=== PATIENT | male | born 1980 | race Caucasian/White ===

== ENCOUNTER 2025-06-04 09:05 | Outpatient (CLI) | payer BC | END 2025-06-04 09:06 | disposition home or self-care (01) | LOC: SCSMRI 09:05 | PROVIDERS: ATTEND Orthopaedic Surgery | DX: S83.512A Sprain of anterior cruciate ligament of left knee, initial encounter (principal) ==

== ENCOUNTER 2025-07-18 06:06 | Observation (INO) | payer BC ==
[2025-07-14 14:44] VITALS: BMI 24.3
[2025-07-18] MEDS ORDERED: fentaNYL PF 100 MCG/2 ML SYRINGE ONE ×2 (07:01→09:30)
[2025-07-18] MEDS ORDERED: Lidocaine 1% PF 5 ML VIAL ONE (07:02)
[2025-07-18] MEDS ORDERED: Lidocaine 1% (PF) 30 ML VIAL ONE (07:08)
[2025-07-18] MEDS ORDERED: Ropivacaine 0.5% HCl/PF (150 MG/30 ML VIAL) ONE (07:21)
[2025-07-18] MEDS ORDERED: PROPOFOL 200 MG/20 ML VIAL ONE (07:46)
[2025-07-18] MEDS ORDERED: Ondansetron PF 4 MG/2 ML Vial ONE (07:52)
[2025-07-18] MEDS ORDERED: Ondansetron PF 4 MG/2 ML Vial IVP PRN (08:45)
[2025-07-18] MEDS ORDERED: Ropivacaine 0.2% 550 ML 550 ML NERVE BLCK SCH (08:45)
[2025-07-18] MEDS ORDERED: HYDROcodone/Acetaminophen 10/325 mg Tablet PO PRN (08:45)
[2025-07-18] MEDS ORDERED: Ketorolac Tromethamine 30 MG (1 mL) VIAL IVP PRN (08:45)
[2025-07-18] MEDS ORDERED: Milk Of Magnesia 30 ML UDCUP PO PRN (09:24)
[2025-07-18] MEDS ORDERED: Bisacodyl 10 MG SUPP PR PRN (09:24)
[2025-07-18] MEDS ORDERED: Methocarbamol 500 MG TAB PO PRN (09:24)
[2025-07-18] MEDS ORDERED: Acetaminophen 500 MG TAB PO PRN (09:24)
[2025-07-18] MEDS ORDERED: HYDROcodone/Acetaminophen 7.5/325 mg Tablet PO PRN (09:24)
[2025-07-18] MEDS ORDERED: HYDROmorphone 0.5 MG/0.5 ML SYRINGE ONE ×2 (09:36→10:08)
[2025-07-18] MEDS: Famotidine 20 MG TAB PO SCH (21:29)
[2025-07-19] MEDS: HYDROcodone/Acetaminophen 10/325 mg Tablet PO PRN (06:06)
[2025-07-19 09:51] VITALS: BP 107/70; TEMP 99.2
== END 2025-07-19 11:34 | disposition home or self-care (01) ==
LOC: SDC 06:06 → SURG B 13:19
PROVIDERS: ADMIT Orthopaedic Surgery; ATTEND Orthopaedic Surgery
PROC: 0MRP47Z Replacement of Left Knee Bursa and Ligament with Autologous Tissue Substitute, Percutaneous Endoscopic Approach (ICD-10-PCS; principal; 2025-07-18)
PROC: 3E0T3BZ Introduction of Anesthetic Agent into Peripheral Nerves and Plexi, Percutaneous Approach (ICD-10-PCS; 2025-07-18)
DX: S83.512A Sprain of anterior cruciate ligament of left knee, initial encounter (principal); X58.XXXA Exposure to other specified factors, initial encounter; Y93.74 Activity, frisbee
CPT/HCPCS: A4306; C1713; C1889; J1010; J1100; J1171; J2003; J2405; J2704; J2795; J3010